=== PATIENT | female | born 1990 | race Caucasian/White ===

== ENCOUNTER → 2021-03-11 02:30 | Outpatient (CLI) | payer OTHER, SELFPAY ==
[2021-03-11 16:16] LABS: SARS-CoV-2 RNA PCR Negative
== END ==
PROVIDERS: Visit Provider Obstetrics & Gynecology
DX: Z01.812 Encounter for preprocedural laboratory examination (principal); Z20.822 Contact with and (suspected) exposure to COVID-19
CPT/HCPCS: C9803; U0003; U0005

== ENCOUNTER 2021-03-12 13:47 | Outpatient (CLI) | payer OTHER, SELFPAY ==
[2021-03-12 14:17] LABS: Hematocrit 40.1 % (37.0-47.0); Hemoglobin 13.2 g/dL (12.0-15.0)
== END 2021-03-12 13:48 | disposition home or self-care (01) ==
PROVIDERS: Visit Provider Obstetrics & Gynecology
DX: Z01.812 Encounter for preprocedural laboratory examination (principal); Z53.31 Laparoscopic surgical procedure converted to open procedure
CPT/HCPCS: 36415; 85014; 85018; 86850; 86900; 86901

== ENCOUNTER 2021-03-14 00:23 | Day surgery (SDC) | payer OTHER, SELFPAY ==
[2021-03-11 15:20] VITALS: BMI 26.8
--- NOTE | 2021-03-12 07:17 | P.HP_ITS ---
H&P: HPI History of Present Illness Date/Time: 03/12/21 07:17 31-year-old 3 para 3 admitted for diagnostic laparoscopy/hysteroscopy / dilatation and curettage/ablation. She complains of pelvic pain and dyspareunia. She has had heavy bleeding as well. Ultrasound showed some free fluid. She has failed control pills and has a family history of endometriosis. Risks and benefits reviewed including but not exclusive of , aspiration pneumonia, bleeding, transfusion, perforation injury to bowel, bladder, ureters, or other internal organs with need for open laparotomy. She received the [employer] handout entitled hysteroscopy as well as dilatation and curettage respectively. She received the endometrial ablation handout. She had all questions answered and asked to proceed. She does understand this is not a form of control and was offered a tubal but declined Chief Complaint: pelvic pain and bleeding Review of Systems Review of Systems: All systems reviewed & are unremarkable except as noted in HPI and below PMFSH Social History Social History Smoking status: Never smoker Substance use: never Gender identity (if verbalized by the patient): Female Spiritual care concerns: No Meds Home Medications and Allergies Allergies Allergy/AdvReac Type Severity Reaction Status Date / Time No Known Allergies Allergy Verified 03/11/21 15:18 Exam Const: General: no acute distress Eyes: General: appearance normal, both eyes and all related structures Neck: Neck: supple and no JVD Thyroid: thyroid normal Resp: Effort & Inspection: normal respiratory effort Auscultation: clear to auscultation bilaterally Cardio: Rate: regular rate Rhythm: regular rhythm GI: Inspection: non-distended GI Palp: Yes Soft to palpation, No Tenderness to palpation present (GI) and No Guarding due to palpation present (GI) Auscultation: normal bowel sounds : General: Yes bladder normal to palpation External Female Exam: normal external appearance Speculum Exam - Vagina: normal vaginal discharge and No vaginal bleeding Speculum Exam - Cervix: nontender Bimanual exam- vagina & uterus: bladder normal to palpation and No Cervical tenderness present OB/external & speculum: No vaginal bleeding Skin: General skin exam: no rashes or lesions noted Extrem: General: normal to inspection and no edema Psych: Mental Status: mental status grossly normal Affect: normal affect Assessment and Plan Additional Plan impression: Pelvic pain and excessive heavy bleeding refractory to medical ther apy Plan: Diagnostic laparoscopy/ hysteroscopy / dilatation and curettage / endometrial ablation
[2021-03-14] VITALS (8 sets, daily range): BP systolic 105–130; BP diastolic 64–79; PULSE 52–91; RESP 13–16; TEMP 36.4–37; O2SAT 100
--- NOTE | 2021-03-14 05:45 | WPDHPUPDATE1 ---
History and Physical Update Update Date/Time: 03/14/21 05:45 History and Physical has been reviewed, including an updated exam of the patient. There are NO changes in the patient's condition. Risks, benefits, and alternatives have been discussed and questions answered. Patient agrees to proceed with procedure.
[2021-03-14] MEDS: ACETAMINOPHEN 500 MG TABLET 1000 MG PO (07:58)
[2021-03-14] MEDS: LACTATED RINGERS 1,000 ML 30 ML IV CONT ×2 (08:13→10:31)
[2021-03-14] MEDS: KETOROLAC 15 MG/ML VIAL (*BKC) IV PUSH (08:14)
--- NOTE | 2021-03-14 08:31 | P.PNAN_ITS ---
Anes - Initial Pre Proc Eval Procedure: Operation Date: 03/14/21 09:30 Proposed Procedures p Diagnostic Laparoscopy Hysteroscopy Dilation & Curettage With Bettye Ablation - Ben Amin MD Date/Time: 03/14/21 08:31 Surgeon: Ben Amin MD Pre Op Diagnosis: pelvic pain, menorrhagia Patient Data Age: 31 Gender: F Height: 1.73 m Weight: 72.7 kg Last Vital Signs Temp 37.0 C 03/14/21 07:46 Pulse 91 03/14/21 07:46 Resp 16 03/14/21 07:46 BP 112/71 03/14/21 07:46 Pulse Ox 100 03/14/21 07:46 Allergies Allergy/AdvReac Type Severity Reaction Status Date / Time No Known Allergies Allergy Verified 03/14/21 07:54 Home Medications Medication Instructions Recorded Confirmed Type hydrocodone-acetaminophen 1 tablet PO Q4H PRN #30 tablet 03/14/21 Rx Patient hx anesthesia problems: none Family hx anesthesia problems: none [facility] Surgical History Surgical History (Updated 03/14/21 @ 08:31 by Ben Caceres MD) H/O abdominoplasty Hx of tonsillectomy Social History Social History Smoking status: Never smoker Substance use: never Living arrangements: with family Gender identity (if verbalized by the patient): Female Sexual Orientation (if Verbalized by the Patient): Straight or Heterosexual Spiritual care concerns: No Anes - Eval Final PreProcedure Day of Procedure 03/14/21 08:31 Patient weight: normal Heart: regular rate and rhythm Lungs: clear to auscultation Airway: Mallampati scale class II Neurological: alert and oriented Last oral intake: >/= 8 hours ASA classification: I Emergent: no Anesthetic plan: proceed Anesthesia type and monitoring: general ETT and standard monitoring Informed Consent: The patient's anesthetic plan and its attendant risks and benefits were discussed with the patient/family/POA. Questions were solicited and answers provided to the satisfaction of the patient/family/POA.
[2021-03-14] MEDS: SCOPOLAMINE 1.5 MG PATCH TRANSDERM (08:38)
--- NOTE | 2021-03-14 10:26 | W.PM.PROC2 ---
Procedure Note - Detailed Date of Procedure 03/14/21 Pre-op Diagnosis pelvic pain, menorrhagia Post-op Diagnosis other (Endometriosis / ovarian cyst) Procedure Performed laparoscopic destruction endometriosis /bilateral ovarian cysts hysteroscopy dilatation curettage / radha endometrial ablation Surgeon Ben Amin MD Anesthesia general Indications this is a 31-year-old multiparous with pelvic pain and bleeding refractory to medical therapy Findings on laparoscopy, a normal-appearing uterus that was somewhat floppy was present. There were bilateral simple ovarian cyst. Powder burn endometriosis with a few blisters along each uterosacral ligament. Normal-appearing gallbladder and liver edge. Normal-appearing appendix Description of Procedure the patient was prepped draped in the normal sterile fashion placed in dorsal lithotomy position. Under excellent general endotracheal anesthesia weighted speculum placed posterior fornix vagina. The anterior lip of the cervix grasped with single-tooth tenaculum Moon's cannula inserted through the cervix. This was attached to the single-tooth tenaculum to be used later for uterine manipulation. The bladder was emptied of clear urine. Weighted speculum was removed gloves were changed. An infraumbilical incision made in the Veress needle passed in the abdomen. The abdomen filled with CO2 gas [id number]. 5Mm trocar advanced under direct visualization and no injury seen. Patient placed in Trendelenburg and a suprapubic incision made. 5Mm trocar advanced under direct visualization assuring no injury. [id number] of serosanguineous fluid was seen cul-de-sac and this was suction and irrigated removed. Small areas of endometriosis were seen right and left uterosacral ligaments. After photo documenting these areas that were cauterized at 35 w per 2nd. Simple bilateral ovarian cysts were noted these were drained in the normal fashion with monopolar cautery. Photo documentation was undertaken appendix and gallbladder and liver edge. The gas removed from the abdomen. The trocars removed. The incisions closed with 4 Monocryl glue Attention was turned to the hysteroscopy portion. The uterus sounded to 8cm. Serial dilatation with fragmented dilators performed followed by passage of the 5mm visualizing hysteroscope. Normal saline was used as visualizing medium. Thick irregular endometrial tissue was seen but no evidence of any abnormalities. Each fallopian tube os appeared normal. The uterus was then scraped over the entire 360?. When a good grating sound was heard, and the purse procedure was terminated from curettage standpoint. The endometrial ablated of instrument was then placed in the uterus. The uterus is burned for 120seconds. The instrument was removed. The hysteroscope was reinserted and a good burn was noted in photo documentation undertaken. The instruments removed from the vagina. The patient was awakened. She went to recovery in satisfactory condition. All sponge, needle, instrument counts were correct. There were no immediate complications Estimated Blood Loss 5 Drains No Packing No Pathology yes Complications No immediate complications Condition stable Disposition PACU
[2021-03-14] MEDS: ONDANSETRON INJ 4 MG/2 ML VIAL IV PUSH (11:30)
[2021-03-14] MEDS: diphenhydrAMINE HCl INJ 50 MG/ML VIAL 25 MG IV PUSH (12:17)
== END 2021-03-14 12:50 | disposition home or self-care (01) ==
PROVIDERS: Visit Provider Obstetrics & Gynecology
PROC: 0UDB8ZZ Extraction of Endometrium, Via Natural or Artificial Opening Endoscopic (ICD-10-PCS; CPT 58558; principal; 2021-03-14 09:30)
DX: N92.0 Excessive and frequent menstruation with regular cycle (principal); R10.2 Pelvic and perineal pain; N80.3 Endometriosis of pelvic peritoneum; N83.202 Unspecified ovarian cyst, left side; N83.201 Unspecified ovarian cyst, right side; R11.2 Nausea with vomiting, unspecified; N94.10 Unspecified dyspareunia
CPT/HCPCS: 58563; 58662; 36415; 85014; 85018; 86850; 86900; 86901; 88305; A9270; C9803; J0330; J1100; J1170; J1200; J1885; J2250; J2405; J2704; J3010; J7030; J7120; U0003; U0005